=== PATIENT | male | born 1995 | race Caucasian/White ===

== ENCOUNTER 2019-12-09 08:16 | Emergency (ER) | payer OTHER ==
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
[2019-12-09 08:31] VITALS: BP 152/78
== END 2019-12-09 09:10 | disposition home or self-care (01) ==
LOC: UCEAST 08:16
DX: S39.012A Strain of muscle, fascia and tendon of lower back, initial encounter (principal); X58.XXXA Exposure to other specified factors, initial encounter; Y92.9 Unspecified place or not applicable
CPT/HCPCS: 99202; G0463

== ENCOUNTER 2020-01-23 08:52 | Emergency (ER) | payer OTHER ==
--- NOTE | 2020-01-23 08:58 | UC ---
Dental HPI - HPI Summary HPI Summary: Patient is a 24 year old male, who presents today to the urgent care with left lower jaw pain for past 2 days. He reports that he had seen a dentist for similar thing long time ago. He sees [facility]. Denies any fever, chills, cough, chest pain or shortness of breath . Denies any abdominal pain , nausea or vomiting , diarrhea or constipation. Patient tried ibuprofen in the morning. - History of Current Complaint Stated Complaint: DENTAL COMPLAINT Time Seen by Provider: 01/23/20 08:55 Hx Obtained From: Patient - Allergies/Home Medications Allergies/Adverse Reactions: Allergies Allergy/AdvReac Type Severity Reaction Status Date / Time No Known Allergies Allergy Verified 01/23/20 08:58 Home Medications: Home Medications Amoxicillin/Clavulanate TAB* [Augmentin TAB 875*] 875 mg PO BID 10 Days #20 tab 01/23/20 [Rx] Ibuprofen 1,000 mg PO Q6H PRN 01/23/20 [History Confirmed 01/23/20] PMH/Surg Hx/FS Hx/Imm Hx - Additional Past Medical History Additional PMH: Past Medical History : None Past Surgical History: No Past History of Procedure Family History : no medical problem. Social History : no alcohol, non smoker, medical marijuana Previously Healthy: Yes - Surgical History Surgical History: None - Family History Known Family History: Positive: None - Social History Alcohol Use: None Substance Use Type: Marijuana Smoking Status (MU): Never Smoked Tobacco Review of Systems All Other Systems Reviewed And Are Negative: Yes Constitutional: Positive: Negative Skin: Positive: Negative Eyes: Positive: Negative ENT: Positive: Dental Pain - left lower Respiratory: Positive: Negative Cardiovascular: Positive: Negative Gastrointestinal: Positive: Negative Genitourinary: Positive: Negative Motor: Positive: Negative Neurovascular: Positive: Negative Musculoskeletal: Positive: Negative Neurological/Mental Status: Positive: Negative Psychological: Positive: Negative Is Patient Immunocompromised?: No Physical Exam - Summary Physical Exam Summary: Vital Signs Reviewed: Yes A+Ox3, no distress Eyes: Conjunctiva Clear ENT: Hearing grossly normal No swelling noted externally in the lower jaw Tenderness to palpation at the #18 tooth on the left lower jaw. Caries and erosion/ fracture noted in the tooth #19. Status post extraction #31 No significant gingival swelling or redness noted neck: supple Respiratory: Positive: No respiratory distress, No accessory muscle use Cardiovascular: skin color reflect adequate perfusion Musculoskeletal Exam: FINNEGAN x 4 without difficulty Neurological: Positive: Alert, ambulatory without difficulty Psychological: Positive: Normal Response To Family Skin: Positive: no rash, no ecchymosis Triage Information Reviewed: Yes Vital Signs Reviewed: Yes Dental Complaint Course/Dx - Course Course Of Treatment: During the visit today, we discussed the findings and further plan. suspect pulpitis or dental abscess I will prescribe the medication to the pharmacy . Advised him to follow up with a dentist. Patient expressed understanding . - Differential Dx/Diagnosis Provider Diagnosis: Dental abscess, Pulpitis, Caries Discharge ED - Sign-Out/Discharge Documenting (check all that apply): Patient Departure All imaging exams completed and their final reports reviewed: No Studies - Discharge Plan Condition: Stable Disposition: HOME Prescriptions: Amoxicillin/Clavulanate TAB* [Augmentin TAB 875*] 875 mg PO BID 10 Days #20 tab Patient Education Materials: Dental Abscess (ED), Toothache (ED) Referrals: No Primary Care Phys,NOPCP [Primary Care Provider] - Additional Instructions: Please start taking the medication as prescribed to the pharmacy . Pain control as needed with ibuprofen, 600 mg up to 3 times a day with food. Follow up with dentist ( Vaishali Leone) in 2 to 3 days. Your blood pressure slightly high in Urgent care today , plan follow up with PCP for better control Return to Urgent care / ER if symptoms get worse. - Billing Disposition and Condition Condition: STABLE Disposition: Home
[2020-01-23 09:03] VITALS: BP 131/83
== END 2020-01-23 09:25 | disposition home or self-care (01) ==
LOC: UCEAST 08:52
DX: K04.7 Periapical abscess without sinus (principal); K04.01 Reversible pulpitis; K02.9 Dental caries, unspecified
CPT/HCPCS: 99212; G0463